=== PATIENT | female | born 1980 | race Caucasian/White ===

== ENCOUNTER 2018-11-05 02:10 | Emergency (ER) | payer OTHER ==
[~2018-11-05] VITALS: Ht 162.6 cm; Wt 55.8 kg
[2018-11-05 02:35] VITALS: Ht 162.6 cm; Wt 55.8 kg
[2018-11-05 04:51] VITALS: BP 105/68
== END 2018-11-05 04:51 | disposition home or self-care (01) ==
LOC: ED 02:10
DX: G43.909 Migraine, unspecified, not intractable, without status migrainosus (principal); Z98.890 Other specified postprocedural states
CPT/HCPCS: J1885; J2765; J7030